=== PATIENT | female | born 1945 | race Caucasian/White ===

== ENCOUNTER 2016-08-29 21:11 | Emergency (ER) | payer MEDICARE, OTHER, MEDICAID ==
[~2016-08-29] VITALS: Ht 157.5 cm; Wt 80.5 kg
[~2016-08-29 21:11] MED LIST: ALBU2.5V4 IH; ALBU8.5H4 IH; ASPI-973 PO; ATOR80TA77 PO; BECL8.7A6 IH; CALC1TAB69 PO; CHOL10002 PO; CLOB59LO3 TP; FLUC100T4 PO; FLUO60SO3 TOP; HYDR-3797 PO; KETO120S TOP; LISI10TA2 PO; LORA1TAB PO; METF850T PO; METH750T3 PO; METO-301 PO; METO25TA6 PO; NITR0.4T SL; NYST60PO TP; OMEP10CA4 PO; OXYB5TAB10 PO; OXYC-302 PO; PARO20TA5 PO; RANI150T11 PO; TIOT18CA3 IH; TRAZ150T72 PO; ZLP5T PO
[2016-08-29 21:14] VITALS: BP 142/73; PULSE 63; RESP 17; O2SAT 97
--- NOTE | 2016-08-29 22:45 | ED.REPORT ---
HPI-General Illness Date of Service Aug 29, 2016 ED Provider: Dr. Alvarez Pt is a 71 year old female with a hx of Bullous Pemphigoid, COPD, DM II, CAD, and hyperlipidemia presenting to the ED complaining of severe abdominal pain onset this morning. She has open wounds from the Bullous Pemphigoid on her suprapubic abdomen. She states that the pain was worsened after she took Prednisone, and is deeper than the skin. Denies any nausea, vomiting, diarrhea, constipation, or bloody stool. Pt saw her PCP today and was prescribed with the prednisone. Nursing Notes Stated Complaint: ABDOMINAL PAIN Chief Complaint: Female Abdominal Pain Nursing Notes Reviewed: Yes Allergies: Coded Allergies: tolmetin (Verified Allergy, Severe, HIVES,SWELLING, 06/27/13) Uncoded Allergies: SUTURES (Allergy, Unknown, UNKNOWN, 04/21/13) Tetanus Toxoid (Allergy, Unknown, UNKNOWN, 04/21/13) Scheduled Aspirin (Aspirin) 81 Mg Tablet.dr 81 MG PO DAILY Atorvastatin Calcium (Atorvastatin Calcium) 80 Mg Tablet 80 MG PO DAILY Beclomethasone Dipropionate (Qvar) 8.7 Gm Aer.w.adap 2 PUFFS IH BID Calcium Carbonate/Vitamin D3 (Calcium 600 + Vit D Tablet) 1 Each Tablet 1 EACH PO DAILY Cefuroxime Axetil (Cefuroxime) 500 Mg Tablet 500 MG PO BID Cholecalciferol (Vitamin D3) 1,000 Unit Tablet 1,000 UNIT PO verify dose Fluconazole (Fluconazole) 100 Mg Tablet 100 MG PO DAILY Fluocinonide 0.05% Solution (Fluocinonide 0.05% Solution) 60 Ml Solution 0 TOP BID Ketoconazole (Nizoral) 120 Ml Shampoo 0 TOP twice weekly Lisinopril (Lisinopril) 10 Mg Tablet 10 MG PO DAILY Loratadine (Claritin) 10 Mg Capsule 10 MG PO DAILY Metformin (Glucophage) 850 Mg Tablet 850 MG PO TIDWM Methocarbamol (Methocarbamol) 750 Mg Tablet 750-1,500 MG PO up to 3 times a day Metoclopramide (Reglan) 10 Mg Tablet 10 MG PO TID Metoprolol Tartrate (Metoprolol Tartrate) 25 Mg Tablet 25 MG PO BID Nystatin (Nystop) 60 Gm Powder 0 TP BID Omeprazole (Omeprazole) 10 Mg Capsule.dr 10 MG PO DAILYAC Oxybutynin Chloride (Oxybutynin Chloride) 5 Mg Tablet 5 MG PO BID Paroxetine (Paroxetine) 20 Mg Tablet 40 MG PO DAILY Ranitidine HCl (Ranitidine) 150 Mg Tablet 150 MG PO DAILY Tiotropium Mcgrath (Spiriva) 18 Mcg Cap.w.dev 1 CAP IH DAILY Trazodone (Trazodone) 150 Mg Tablet 150 MG PO HS Zolpidem (Ambien) 5 Mg Tab 5 MG PO HS Scheduled PRN Albuterol HFA (Albuterol HFA) 8.5 Gm Hfa.aer.ad 2 PUFF IH Q4-6H PRN PRN breathing Albuterol Neb Soln (Albuterol Neb Soln) 2.5 Mg/3 Ml Vial.neb 3 ML IH QID PRN PRN for nebulization Clobetasol Propionate (Clobetasol Propionate) 59 Ml Lotion 59 ML TP 5XD PRN PRN skin Hydroxyzine Pamoate (HydrOXYzine Pamoate) 25 Mg Capsule 25 MG PO QID PRN PRN For Itching Lorazepam (Lorazepam) 1 Mg Tablet 1 MG PO HS PRN PRN For Insomnia Nitroglycerin SL (Nitrostat) 0.4 Mg Tab.subl 0.4 MG SL Q5MIN PRN PRN for chest pain Oxycodone HCl/Acetaminophen (Percocet 7.5-325 mg Tablet) 1 Each Tablet 1 EACH PO Q6 PRN PRN For Pain diphenhydrAMINE HCl (Benadryl) 25 Mg Capsule 0 PO HS PRN PRN General Time Seen by MD: 22:44 Chief Complaint Abdominal pain Hx Obtained From: Patient Arrived By: Walk-in Sudden in Onset?: Yes Onset Occurred: 9 - 12 hours ago Symptom Duration: Since onset Location: : Abdomen Quality: Painful Severity: Current: Severe Severity: Maximum: Severe Recent Healthcare: No recent hospitalization, Recent doctor visit Similar Sx Previous: No Past Medical History Past Medical History Bullous pemphigoid Fibromyalgia Chronic lower back and left shoulder pain Hypothyroidism Reports: COPD, Coronary artery disease, Diabetes mellitus (II), Hyperlipidemia Reports: Depression Past Surgical History Reports: CABG (In 2001), Cholecystectomy, Hysterectomy Ambulatory Status Independent Review of Systems Full Review of Systems GI: Reports: Abdominal pain, Denies: Bloody/tarry stool, Constipation, Diarrhea, Nausea, Vomiting Skin: Reports Rash Complete sys rev & neg: except as marked. Physical Exam Vital Signs Vital Signs Date Time Temp Pulse Resp B/P Pulse Ox O2 Delivery O2 Flow Rate FiO2 08/30/16 03:55 36.1 89 16 144/84 95 Room Air 08/30/16 01:16 36.9 83 138/62 92 Room Air 08/29/16 23:26 36.8 69 125/64 94 Room Air 08/29/16 21:14 36.6 63 17 142/73 97 Room Air Initial VS: Reviewed General/Constitutional: Well-developed, Well-nourished Head / Eyes: Atraumatic, Normocephalic, PERRL ENT: Mucous membranes moist, Conjunctiva normal, No scleral icterus Respiratory: Breath sounds normal, Clear to auscultation, No respiratory distress Cardiovascular: Regular rate & rhythm, Heart sounds normal, Intact distal pulses Abdomen / GI: Soft, Non-tender, No guarding, No rebound, No distention Extremities: Vascular intact, Neuro intact, No swelling, No tenderness Neurologic: Alert, Oriented, Nonfocal Psychiatric: Mood/affect normal, Behavior normal, Normal thought content Skin: Warm Intertriginous erosions diffusely across the abdomen oozing purulent drainage. Multiple diffuse excoriations. Interpretation & Diagnostics Lab Results Interpretation Result Diagram: 08/29/16 2331 08/29/16 2331 Test 08/29/16 23:31 08/29/16 23:33 08/30/16 00:08 White Blood Count 11.9th/mm3 (3.8-10.1) Red Blood Count 4.01mil/mm3 (3.90-5.20) Hemoglobin 11.7g/dL (12.0-15.6) Hematocrit 36.6% (35.0-46.0) Mean Corpuscular Volume 91.3fL (81-100) Mean Corpuscular Hemoglobin 29.2pg (27.0-35.0) Mean Corpuscular Hemoglobin Concent 32.0% (32.0-37.0) Red Cell Distribution Width 14.0% (12.3-15.4) Platelet Count 429bil/L (150-400) Neutrophils (%) (Auto) 74.1% (40-74) Lymphocytes (%) (Auto) 18.5% (14-46) Monocytes (%) (Auto) 3.8% (4-12) Eosinophils (%) (Auto) 2.9% (0-5) Basophils (%) (Auto) 0.5% (0-3) Prothrombin Time 10.1sec (8.1-12.5) Prothromb Time International Ratio 0.95ratio Sodium Level 137mEq/L (134-144) Potassium Level 4.5mEq/L (3.5-5.2) Chloride Level 100mEq/L (97-108) Carbon Dioxide Level 21mmol/L (18-29) Blood Urea Nitrogen 14mg/dL (8-27) Creatinine 0.66mg/dL (0.57-1.00) Estimat Glomerular Filtration Rate 127mL/min (>59) Glucose Level 169mg/dL (60-99) Calcium Level 9.4mg/dL (8.5-10.1) Magnesium Level 1.1mg/dL (1.6-2.6) Total Bilirubin 0.3mg/dL (0.0-1.2) Aspartate Amino Transf (AST/SGOT) 12U/L (0-50) Alanine Aminotransferase (ALT/SGPT) 9U/L (0-32) Alkaline Phosphatase 111U/L (25-165) Total Protein 7.2g/dL (6.4-8.4) Albumin 3.3g/dL (3.4-5.0) Lipase 21U/L (13-60) Urine Color Yellow (YELLOW) Urine Appearance Cloudy (CLEAR,HAZY) Urine pH 5.5 (5.0-8.0) Urine Specific [place] 1.012 (1.003-1.035) Urine Protein Negativemg/dL (NEG,TRACE) Urine Glucose (UA) Negativemg/dL (NEGATIVE) Urine Ketones Negativemg/dL (NEGATIVE) Urine Occult Blood Trace (NEGATIVE) Urine Nitrite Negative (NEGATIVE) Urine Bilirubin Negative (NEGATIVE) Urine Urobilinogen Normalmg/dL (NORMAL) Urine Leukocyte Esterase Moderate (NEGATIVE) Urine RBC 0-2/hpf (0-2) Urine WBC 11-50/hpf (0-5) Urine Epithelial Cells Few/hpf (NONE-MOD) Urine Crystals Amorphous urates (NONE Urine Bacteria Moderate/hpf (NONE-FEW) Urine Hyaline Casts None/lpf (NONE) Urine Granular Casts None seen (NONE SEEN) Urine Waxy Casts None seen (NONE SEEN) Urine Red Blood Cell Casts None seen (NONE SEEN) Urine White Blood Cell Casts None seen (NONE SEEN) Urine Mucus Present (None Seen) Urine Trichomonas None seen (NONE SEEN) Urine Yeast None (NONE SEEN) Urinalysis Comment None Urine Culture Reflexed Indicated Hold Ontiveros Top Tube Received (Received) CT Abd / Pelvis Interpretation CONCLUSION: Colonic air-fluid levels, which is nonspecific but can be seen with enterocolitis, ileus or other diarrhea producing process. Cardiomegaly with mild interstitial edema. This report was transmitted to the emergency room at 08/30/2016 - 1:04:32 AM PDT. Interpretation / Wet Read by: Interpret - Radiologist Re-Eval/Medical Decision Med Decision/Clinical Course 71-year-old female. Alert presents with lower abdominal pain in the suprapubic area essentially. She has incidental skin erosions consistent with her pemphigoid, but her pain is deeper than that. Labs are unremarkable apart from urine showing a urine infection. CT of the abdomen and pelvis shows thickening of the bladder and no other significant findings. She was gotten here with Rocephin, with Ceftin follow-up. Follow up with PCP. Time of Eval: 03:53 Patient Status: Condition improved Re-Evaluation/Progress Note: Discussed plan for discharge. Pt understands and agrees with plan. Counseled Regarding: Diagnosis, Lab results, Need for follow-up, When/why to return to ED Discharge & Departure Primary Impression: Urinary tract infection Urinary tract infection type: site unspecified Hematuria presence: without hematuria Qualified Code: N39.0 - Urinary tract infection, site not specified Additional Impression: Bullous pemphigoid Disposition: Home Discharge Condition All VS Reviewed: Yes Condition: Improved Patient Instructions: Acute Abdominal Pain (ED), Urinary Tract Infection in Women (ED) Additional Instructions: Begin Ceftin twice daily for ten days. Follow-up with your doctor in the office. Use a sterile nonadherent dressing and your abdominal fold to prevent the skin from adhering to your clothing. Follow-up with your development geologist also. Avoid itching is much as possible. Claritin daily to reduce itching. Benadryl at night if needed additionally. Referrals: Sanjana Kat MD (PCP) Scribe Attestation Portions of this note were transcribed by Latonia Santiago. I, Dr. Alvarez personally performed the history, physical exam and medical decision-making; I reviewed and confirmed the accuracy of the information in the transcribed note. Signed by: David Clifford, 08/29/2016 at 0352. copies to: Sanjana Kat MD,Ganesh Anne MD Aug 29, 2016 22:45 LATONIA SANTIAGO Aug 29, 2016 22:53
[2016-08-29] MEDS ORDERED: 0.9% Sodium Chloride 1,000 ML IV ONE (22:51)
[2016-08-29] MEDS ORDERED: Ondansetron 2 mg/mL 2 mL Inj IVPUSH ONE (22:55)
[2016-08-29 23:26] VITALS: BP 125/64; PULSE 69; O2SAT 94
[2016-08-29 23:36] LABS: BASOPHILS % (AUTO) 0.5 % (0-3); EOSINOPHILS % (AUTO) 2.9 % (0-5); MONOCYTES % (AUTO) 3.8 % (4-12); Mean Corpuscular Hemoglobin 29.2 pg (27.0-35.0); Mean Corpuscular Volume 91.3 fL (81-100); NEUTROPHILS % (AUTO) 74.1 % (40-74); Platelet Count 429 bil/L (150-400)
[2016-08-29 23:52] LABS: APPEARANCE,URINE CLOUDY (CLEAR,HAZY); COLOR,URINE YELLOW (YELLOW); OCCULT BLOOD,URINE TRACE (NEGATIVE); PH,URINE 5.5 (5.0-8.0); UROBILINOGEN,URINE NORMAL (NORMAL)
[2016-08-29 23:52] LABS: INR 0.95 ratio
[2016-08-30 00:12] LABS: Magnesium 1.1 mg/dL (1.6-2.6)
[2016-08-30] MEDS ORDERED: Magnesium Sulf 4 Gm/100 mL H2O 4 GM in IV Premix 1 EACH IV ONE (00:25)
[2016-08-30 01:16] VITALS: BP 138/62; PULSE 83; O2SAT 92
[2016-08-30] MEDS ORDERED: cefTRIAXone Inj 2,000 MG in Dextrose 5% Minibag Plus 50 ML IV ONE (01:40)
[2016-08-30] MEDS ORDERED: LORA10CA PO (03:49)
[2016-08-30] MEDS ORDERED: DIPH25CA6 PO (03:49)
[2016-08-30] MEDS ORDERED: CEFU500T61 PO (03:49)
[2016-08-30 03:55] VITALS: BP 144/84; PULSE 89; RESP 16; O2SAT 95
--- NOTE | 2016-08-30 08:28 | DRSVH ---
PROCEDURE: CT ABDOMEN AND PELVIS WITH CONTRAST ([id number]) INDICATIONS: Lower abdominal pain, on prednisone. TECHNIQUE: After the administration of intravenous contrast, 5 mm thick sections acquired from the diaphragm to the symphysis. 5 mm coronal and sagittal reformats were acquired. For radiation dose reduction, the following was used: automated exposure control, adjustment of mA and/or kV according to patient siz e. COMPARISON: [facility], CT, ABDOMEN W/O CONTRAST, 08/17/2009, 14:54. [facility]ital, CT, ABD/PELVIS W/CON (PNL), 06/23/2013, 10:46. [facility], CT, ANGIO CHEST, 2013, 13:33. FINDINGS: Image quality: Excellent. ABDOMEN: Lung bases: Lung bases are clear. Heart size is normal. Solid organs: Mild hepatic fatty infiltration. Liver and spleen are normal in size and enhancement. Gallbladder is surgically absent. Biliary system is non dilated. Pancreas enhances normally. There is a 1.6 cm right adrenal nodule, unchanged compared to 06/23/2013. Kidneys demonstrate normal size and enhancement. There is mild right pelviectasis. Peritoneum and bowel: Bowel loops demonstrate normal wall thickness and caliber. No free fluid or a ir. Nodes and vessels: No retroperitoneal or mesenteric adenopathy by size criteria. Aorta and inferior vena cava are normal in size. Moderate aortic atherosclerosis. Miscellaneous: No ventral hernias. PELVIS: Genitourinary: Bladder is distended. Bladder wall thickness is normal. Calcific density in the pelv is are most likely phleboliths. Miscellaneous: No inguinal hernias or adenopathy. Bones: No suspicious bony lesions. No vertebral body compression fractures. IMPRESSION: 1. Moderate amount of stool in colon. There is colonic fluid and a few air-fluid levels. The finding is nonspecific and could be related to gastroenteritis. Clinical correlation suggested. 2. Stable 1.6 m right adrenal nodule. 3. Mild right renal pelviectasis. No obstructive renal or ureteral stone is identified. 4. Aortic atherosclerosis. No significant discrepancy with the nutritionist public health radiology preliminary report. Dictated by: Tejas Weems M.D. on 08/30/2016 at 8:23 Transcribed by: RADHA on 08/30/2016 at 8:27 Approved by: Tejas Weems M.D. on 08/30/2016 at 17:13
== END 2016-08-30 03:56 | disposition home or self-care (01) ==
LOC: SED 21:11
DX: N39.0 Urinary tract infection, site not specified (principal); B96.20 Unspecified Escherichia coli [E. coli] as the cause of diseases classified elsewhere; L12.0 Bullous pemphigoid; I25.10 Atherosclerotic heart disease of native coronary artery without angina pectoris; E11.9 Type 2 diabetes mellitus without complications; E78.5 Hyperlipidemia, unspecified; J44.9 Chronic obstructive pulmonary disease, unspecified; E03.9 Hypothyroidism, unspecified; M79.7 Fibromyalgia; F32.9 Major depressive disorder, single episode, unspecified; Z90.49 Acquired absence of other specified parts of digestive tract; Z95.1 Presence of aortocoronary bypass graft; Z79.82 Long term (current) use of aspirin; Z79.84 Long term (current) use of oral hypoglycemic drugs; Z88.8 Allergy status to other drugs, medicaments and biological substances
CPT/HCPCS: 36415; 74177; 80053; 81000; 83690; 83735; 85025; 85610; 87077; 87086; 87088; 87186; 96361; 96365; 96375; 99285; J0696; J2405; J3475; J7030; Q9967